=== PATIENT | female | born 1980 ===

== ENCOUNTER 2020-11-28 23:26 | Emergency (ER) | payer OTHER ==
[~2020-11-28] VITALS: Ht 160 cm; Wt 81.2 kg
[~2020-11-28 23:26] MED LIST: BICARSIM FORTE125 MG PO; PEPCID40 MG PO; PROTONIX40 M1 PO
[2020-11-29] MEDS ORDERED: FORTAMET500 MG (00:14)
[2020-11-29] MEDS ORDERED: SYNTHROID150 MCG (00:14)
[2020-11-29] MEDS ORDERED: KETO10TA2 PO (03:28)
== END 2020-11-29 03:32 ==
LOC: ER 23:26
DX: S69.81XA Other specified injuries of right wrist, hand and finger(s), initial encounter (principal); W10.8XXA Fall (on) (from) other stairs and steps, initial encounter; Y93.39 Activity, other involving climbing, rappelling and jumping off; Y92.018 Other place in single-family (private) house as the place of occurrence of the external cause; Y99.8 Other external cause status